=== PATIENT | female | born 1985 | race Caucasian/White ===

== ENCOUNTER 2018-05-05 00:15 | Emergency (ER) | payer OTHER ==
[2018-05-05 00:23] VITALS: BP 129/79
--- NOTE | 2018-05-05 01:22 | ED Physician Documentation ---
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 she is UTD on tetanus immunization. patient is right hand dominant Review of Systems Skin: reports: Laceration (s) Neurologic: denies: Focal weakness, Numbness PD PAST MEDICAL HISTORY - Past Medical History Past Medical History: Yes Other Past Medical History: heart murmur since - Past Surgical History Past Surgical History: No - Present Medications Home Medications: Ambulatory Orders Medication Instructions Recorded Confirmed Bcp 05/05/18 - Allergies Allergies/Adverse Reactions: Allergies Allergy/AdvReac Type Severity Reaction Status Date / Time No Known Drug Allergies Allergy Verified 05/05/18 00:22 - Social History Does the pt smoke?: No Smoking Status: Never smoker Does the pt drink ETOH?: Yes Does the pt have substance abuse?: No - Immunizations Immunizations are current?: Yes PD ED PE NORMAL - Vitals Vital signs reviewed: Yes - General General: Alert and oriented X 3, No acute distress, Well developed/nourished PD ED PE EXPANDED - Extremities MYRIAM UE/Hands Visual: 1 - laceration (avulsion of fingertip and distal nail with bleeding that stops with direct pressure. no exposed bone, no bony tenderness. ROM intact in the digit (flexion and extension)) Results - Vitals Vitals: Vital Signs - 24 hr 05/05/18 00:21 Temperature 36.6 C Heart Rate 69 Respiratory 18 Rate Blood Pressure 129/79 O2 Saturation 100 Oxygen O2 Source Room air PD MEDICAL DECISION MAKING - ED course Complexity details: considered differential, d/w patient Departure - Departure Disposition: 01 Home, Self Care Clinical Impression: Injury of tip of finger Qualifiers: Encounter type: initial encounter Laterality: right Qualified Code(s): S69.91XA - Unspecified injury of right wrist, hand and finger(s), initial encounter Condition: Good Instructions: ED Laceration Amputation Finger Tip Open Tx Follow-Up: Sage Wray MD [Primary Care Provider] - Discharge Date/Time: 05/05/18 01:50
== END 2018-05-05 01:50 | disposition home or self-care (01) ==
LOC: ED 00:15
DX: S61.312A Laceration without foreign body of right middle finger with damage to nail, initial encounter (principal); W27.4XXA Contact with kitchen utensil, initial encounter; Y93.89 Activity, other specified; Y92.009 Unspecified place in unspecified non-institutional (private) residence as the place of occurrence of the external cause
CPT/HCPCS: 99282; 99283

== ENCOUNTER 2019-01-08 13:21 | Emergency (ER) | payer OTHER ==
[2019-01-08] MEDS ORDERED: KETOROLAC 30 MG/ML VIAL IVP STA (13:57)
[2019-01-08] MEDS ORDERED: SODIUM CHLORIDE 0.9% 1,000 ML IV ONE (13:57)
--- NOTE | 2019-01-08 14:01 | ED Physician Documentation ---
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 She has saturated 3 pads this morning. She has acute right lower pain. She has had similar symptoms previously with ovarian cyst and she has been placed onto low-dose control and her symptoms have been controlled for about 4 years. Review of Systems Constitutional: denies: Fever Eyes: denies: Decreased vision Ears: denies: Ear pain Nose: denies: Congestion Throat: denies: Sore throat Cardiac: denies: Chest pain / pressure, Palpitations Respiratory: denies: Dyspnea, Cough GI: reports: Abdominal Pain. denies: Nausea, Vomiting, Constipation, Diarrhea : reports: Vaginal bleeding, Other (pelvic cramping). denies: Dysuria, Frequency, Discharge Skin: denies: Rash Musculoskeletal: denies: Neck pain, Back pain, Extremity pain PD PAST MEDICAL HISTORY - Past Surgical History Past Surgical History: No - Present Medications Home Medications: Ambulatory Orders Medication Instructions Recorded Confirmed Bcp 05/05/18 Hydrocodone/Acetaminophen 1 - 2 each PO Q6H PRN #14 tablet 01/08/19 [Hydrocodon-Acetaminophen 5-325] Multivitamin [Multivitamins] 01/08/19 - Allergies Allergies/Adverse Reactions: Allergies Allergy/AdvReac Type Severity Reaction Status Date / Time No Known Drug Allergies Allergy Verified 01/08/19 13:26 - Social History Does the pt smoke?: No Smoking Status: Never smoker Does the pt drink ETOH?: Yes Does the pt have substance abuse?: No - Immunizations Immunizations are current?: Yes PD ED PE NORMAL - Vitals Vital signs reviewed: Yes (normal ) - General General: Alert and oriented X 3, Well developed/nourished, Other (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 ) - HEENT HEENT: Atraumatic, PERRL, EOMI - Neck Neck: Supple, no meningeal sign, No bony TTP - Cardiac Cardiac: RRR, No murmur - Respiratory Respiratory: No respiratory distress, Clear bilaterally - Abdomen Abdomen: Normal bowel sounds, Soft, Non distended, No organomegaly, Other (suprapubic tenderness just to the right of midline. ) - Back Back: No CVA TTP, No spinal TTP - Derm Derm: Normal color, Warm and dry, No rash - Extremities Extremities: No edema - Neuro Neuro: Alert and oriented X 3, core maker 2-12 intact, No motor deficit, No sensory deficit, Normal speech Eye Opening: Spontaneous Motor: Obeys Commands Verbal: Oriented GCS Score: 15 - Psych Psych: Normal mood Results - Vitals Vitals: Vital Signs - 24 hr 01/08/19 01/08/19 01/08/19 13:25 14:02 15:38 Temperature 36.7 C Heart Rate 70 79 65 Respiratory 18 15 18 Rate Blood Pressure 128/80 147/83 H 111/78 O2 Saturation 100 97 100 Oxygen O2 Source Room air - Labs Labs: Laboratory Tests 01/08/19 01/08/19 01/08/19 14:11 14:11 15:30 WBC 7.1 RBC 4.72 Hgb 14.0 Hct 40.7 MCV 86.2 MCH 29.7 MCHC 34.4 RDW 11.9 L Plt Count 281 MPV 9.0 Neut # (Auto) 4.9 Lymph # (Auto) 1.5 [place] # (Auto) 0.5 Eos # (Auto) 0.1 Baso # (Auto) 0.1 Absolute Nucleated RBC 0.00 Nucleated RBC % 0.0 Sodium 139 Potassium 3.9 Chloride 104 Carbon Dioxide 24 Anion Gap 11.0 BUN 13 Creatinine 0.7 Estimated GFR (MDRD) 96 Glucose 117 H Calcium 9.0 Total Bilirubin 0.7 AST 19 ALT 26 Alkaline Phosphatase 56 Total Protein 7.7 Albumin 4.1 Globulin 3.6 Albumin/Globulin Ratio 1.1 Lipase 57 H Urine Color YELLOW Urine Clarity CLEAR Urine pH 6.5 Ur Specific [place] 1.020 Urine Protein NEGATIVE Urine Glucose (UA) NEGATIVE Urine Ketones NEGATIVE Urine Occult Blood MODERATE H Urine Nitrite NEGATIVE Urine Bilirubin NEGATIVE Urine Urobilinogen 0.2 (NORMAL) Ur Leukocyte Esterase NEGATIVE Urine RBC 6-10 H Urine WBC 0-3 Ur Squamous Epith Cells FEW Squamous Urine Bacteria None Seen Ur Microscopic Review INDICATED Urine Culture Comments NOT INDICATED Urine HCG, Qual NEGATIVE - Rads (name of study) pelvic ultrasound Radiology: Prelim report reviewed (Impression: 1. A simple right ovarian cyst measuring 3.4 x 1.6 x 2.3 cm. 2 A juxta- endometrial fibroid seen in the left anterior uterus measuring 0.8 x 1 x 1 cm, submucosal location is not excluded. A larger intramural fibroid measuring 1.6 x 1.3 x 1.9 cm.), EMP read indepedently, See rad report PD MEDICAL DECISION MAKING - ED course Complexity details: reviewed results, re-evaluated patient, considered differential, d/w patient, d/w family ED course: 33-year-old female with a prior history of ovarian cyst has been on low-dose control for 4 years and has had control of her symptoms. Over the past 2 months she has had increased symptoms of cramping with menstruation and increased bleeding. Today she has marked increase in her bleeding and severe pain ultrasound was undertaken to rule out torsion. There is no evidence of torsion and the patient has excellent pain relief with the use of Toradol. She is much more comfortable. Ultrasound shows uterine fibroids and right ovarian cyst. Simple. Departure - Departure Disposition: 01 Home, Self Care Clinical Impression: Fibroids Cyst of ovary Qualifiers: Laterality: right Qualified Code(s): N83.201 - Unspecified ovarian cyst, right side Condition: Stable Instructions: ED Fibroids, ED Cyst Ovarian Follow-Up: Sage Wray MD [Primary Care Provider] - Prescriptions: Hydrocodone/Acetaminophen [Hydrocodon-Acetaminophen 5-325] 1 - 2 each PO Q6H PRN #14 tablet PRN Reason: pain Comments: A follow up with [facility] ARCHIT[facility] is recommended.
[2019-01-08 14:21] LABS: BASOPHILS # (AUTO) 0.1 10^3/uL (0.0-0.1); BASOPHILS % (AUTO) 0.7 %; EOSINOPHILS # (AUTO) 0.1 10^3/uL (0.0-0.7); LYMPHOCYTES # (AUTO) 1.5 10^3/uL (1.5-3.5); MEAN CORPUSCULAR HEMOGLOBIN 29.7 pg (27.0-31.0); MEAN CORPUSCULAR HGB CONC 34.4 g/dL (32.0-36.0); MEAN CORPUSCULAR VOLUME 86.2 fL (81.0-99.0); MONOCYTES # (AUTO) 0.5 10^3/uL (0.0-1.0); NEUTROPHILS # (AUTO) 4.9 10^3/uL (1.5-6.6); PLT - PLATELET COUNT 281 10^3/uL (130-450); RED BLOOD COUNT 4.72 10^6/uL (4.20-5.40); RED CELL DISTRIBUTION WIDTH 11.9 % (12.0-15.0); WHITE BLOOD COUNT 7.1 x10^3/uL (4.8-10.8)
[2019-01-08 14:34] LABS: ALBUMIN 4.1 g/dL (3.2-5.5); ALBUMIN/GLOBULIN RATIO 1.1 (1.0-2.2); BILIRUBIN,TOTAL 0.7 mg/dL (0.2-1.0); CREATININE 0.7 mg/dL (0.4-1.0); TOTAL PROTEIN 7.7 g/dL (6.7-8.2)
[2019-01-08 15:38] LABS: BILIRUBIN,URINE NEGATIVE (NEGATIVE); GLUCOSE, URINE (UA) NEGATIVE (NEGATIVE); KETONES,URINE (UA) NEGATIVE (NEGATIVE); LEUKOCYTE ESTERASE, URINE NEGATIVE (NEGATIVE); NITRITE,URINE NEGATIVE (NEGATIVE); OCCULT BLOOD,URINE MODERATE (NEGATIVE); PH,URINE 6.5 PH (5.0-7.5); PROTEIN,URINE NEGATIVE (NEGATIVE); UROBILINOGEN,URINE 0.2 (NORMAL) E.U./dL (NORMAL)
[2019-01-08 15:39] VITALS: BP 111/78
[2019-01-08 15:42] LABS: CLARITY,URINE CLEAR (CLEAR); HCG UR QUAL NEGATIVE
--- NOTE | 2019-01-08 15:43 | Ultrasound Report ---
Reason: severe RLQ pain excessive vaginal bleeding. Procedure Date: 01/08/2019 Accession Number: [id number] / [id number] Procedure: US - Pelvic w/Transvag+Doppler Ltd CPT Code: FULL RESULT: EXAM: PELVIC ULTRASOUND WITH DOPPLERS CLINICAL HISTORY: Severe RLQ pain excessive vaginal bleeding. COMPARISON: None. TECHNIQUE: Realtime transabdominal imaging performed to identify the uterus and adnexa and as an overview of other pelvic structures, followed by transvaginal imaging for better assessment of the endometrium and adnexa, with static image documentation. Color flow imaging and Doppler spectral analysis was performed to evaluate blood flow to the ovaries given pelvic pain and clinical concern for ovarian torsion. FINDINGS: Uterus: 9.2 x 4.2 x 5.6 cm, volume 113.1 cc. Anteverted position. Normal overall size and echotexture. Masses: A juxta -endometrial fibroid seen in the left anterior aspect of the uterus measuring 0.8 x 1 x 1 cm, submucosal location is not excluded. There is a larger intramural fibroid measuring 1.6 x 1.3 x 1.9 cm. Endometrium: 2.1 mm. Normal. Cervix: Nabothian cysts noted. Right Ovary: 4.4 x 2.2 x 2.9 cm, volume 14.7 cc. Normal echotexture. There is a simple right ovarian cyst measuring 3.4 x 1.6 x 2.3 cm. Left Ovary: 3 x 1.4 x 2.3 cm, volume 5.2 cc. Normal echotexture. Adnexa are unremarkable. Free Fluid: None. Other: None. IMPRESSION: 1. A simple right ovarian cyst measuring 3.4 x 1.6 x 2.3 cm. 2. A juxta -endometrial fibroid seen in the left anterior uterus measuring 0.8 x 1 x 1 cm, submucosal location is not excluded. A Larger intramural fibroid measuring 1.6 x 1.3 x 1.9 cm. RADIA
[2019-01-08 15:51] LABS: BACTERIA,URINE None Seen /HPF (None Seen); SQUAMOUS EPITHELIAL CELL,UR FEW Squamous (<= Few)
== END 2019-01-08 16:13 | disposition home or self-care (01) ==
LOC: ED 13:21
DX: D25.1 Intramural leiomyoma of uterus (principal); N83.291 Other ovarian cyst, right side; N92.0 Excessive and frequent menstruation with regular cycle
CPT/HCPCS: 36415; 76830; 76856; 80053; 81001; 81003; 81025; 83690; 85025; 87086; 93976; 96361; 96374; 99284

== ENCOUNTER 2020-12-20 10:27 | Emergency (ER) | payer OTHER ==
[2020-12-20] MEDS ORDERED: HYDROcod/ACETAM 5/325 MG TABLET PO STA (10:43)
[2020-12-20] MEDS ORDERED: LIDOCAINE PATCH 5% TOP STA (10:43)
[2020-12-20] MEDS ORDERED: CYCLOBENZAPRINE 10 MG TABLET PO STA (10:43)
[2020-12-20] MEDS ORDERED: ONDANSETRON ODT 4 MG TABLET TL STA (10:43)
[2020-12-20] MEDS ORDERED: KETOROLAC 15 MG/ML VIAL IM STA (10:43)
--- NOTE | 2020-12-20 10:45 | ED Physician Documentation ---
PD HPI BACK PAIN - Stated complaint Stated Complaint: BACK PX - Chief complaint Chief Complaint: Back Pain - History obtained from History obtained from: Patient - Additional information Additional information: While on a rowing machine last night she developed severe left-sided upper back pain it hurts to take a deep breath, but not short of breath per se. The pain does not radiate. It is worse if she twists or bends as well. No history of back problems. She tried ibuprofen without relief. She has had a sensitivity to narcotics in the past but does okay if combined with nausea medicine. No possibility of . 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 - Past Surgical History Past Surgical History: No - Present Medications Home Medications: Ambulatory Orders Medication Instructions Recorded Confirmed Bcp 05/05/18 Hydrocodone/Acetaminophen 1 - 2 each PO Q6H PRN #14 tablet 01/08/19 [Hydrocodon-Acetaminophen 5-325] Multivitamin [Multivitamins] 01/08/19 Cyclobenzaprine [Flexeril] 10 mg PO TID PRN #20 tablet 12/20/20 HYDROcod/ACETAM 5/325 [[place] 5/325] 1 - 2 tab PO Q6H PRN #15 tablet 12/20/20 Lidocaine Patch 5% [Lidoderm Patch] 1 patch TOP DAILY PRN #10 patch 12/20/20 Ondansetron Odt [Zofran] 4 mg TL Q6H PRN #10 tablet 12/20/20 - Allergies Allergies/Adverse Reactions: Allergies Allergy/AdvReac Type Severity Reaction Status Date / Time oxycodone AdvReac Emesis Verified 12/20/20 10:34 - Social History Does the pt smoke?: No Smoking Status: Never smoker Does the pt drink ETOH?: Yes Does the pt have substance abuse?: No - Immunizations Immunizations are current?: Yes PD ED PE NORMAL - Vitals Vital signs reviewed: Yes - General General: Alert and oriented X 3, Other (Comfortable at rest but resistant to move and winces with motion.) - Neck Neck: Supple, no meningeal sign, No bony TTP - Cardiac Cardiac: RRR, No murmur - Respiratory Respiratory: No respiratory distress, Clear bilaterally - Abdomen Abdomen: Non tender - Back Back: No spinal TTP, Other (Tender to low parathoracic musculature on the left) - Extremities Extremities: Other (The patient has equal and normal Achilles and patellar reflexes bilaterally. Normal sensation in all areas of the legs. Patient denies saddle anesthesia. Normal strength in flexion-extension at the ankles, knees, and flexion of the hips.) - Neuro Neuro: Alert and oriented X 3, Normal speech Results - Vitals Vitals: Vital Signs - 24 hr 12/20/20 10:33 Temperature 36.6 C Heart Rate 70 Respiratory 20 Rate Blood Pressure 105/65 O2 Saturation 100 Oxygen O2 Source Room air PD MEDICAL DECISION MAKING - ED course ED course: This patient has seemingly uncomplicated musculoskeletal back pain. The patient has no "red flags." Specifically denies IV drug use, fevers, incontinence, saddle anesthesia. Spinal epidural abscess was considered, given that the patient has no fever, is not diabetic, has no spinal tenderness, does not use IV drugs, and has no bilateral neurologic symptoms, the diagnosis of spinal epidural abscess is considered exceedingly unlikely. Departure - Departure Disposition: Home, Self Care Clinical Impression: Back spasm Condition: Good Record reviewed to determine appropriate education?: Yes Instructions: ED Spasm Back No Trauma Prescriptions: Cyclobenzaprine [Flexeril] 10 mg PO TID PRN #20 tablet PRN Reason: Spasms Lidocaine Patch 5% [Lidoderm Patch] 1 patch TOP DAILY PRN #10 patch PRN Reason: pain HYDROcod/ACETAM 5/325 [[place] 5/325] 1 - 2 tab PO Q6H PRN #15 tablet PRN Reason: Pain Ondansetron Odt [Zofran] 4 mg TL Q6H PRN #10 tablet PRN Reason: Nausea / Vomiting Comments: Call your doctor to arrange a follow-up appointment, make the next available appointment. In the interim, return anytime if worse or if new symptoms develop. I am prescribing a short course of narcotic pain medication for you. These are potentially dangerous and addictive medications that should be used carefully. These medications may constipate you. Take an [id number] stool softener (docusate) twice daily with plenty of water while taking these medications. If you go 24 hours without a bowel movement, take [id number] miralax, per package instructions. Do not drink or drive while taking these medications. If you received narcotic or sedating medications while in the emergency department, do not drive for 24 hours. Store this medication in a safe, secure place and out of reach of children. It is a violation of federal law to give or sell this medication to another person or to use in a manner other than prescribed. The ED will not refill narcotic prescriptions, including prescriptions lost or stolen. To dispose of unwanted medications: 1. [facility] [address] in [place] has a medication drop box. They accept prescription medications (in pill form) Thursday through Thursday 9:00 a.m. to 5:00 p.m. 2. The [facility] [employer] accepts prescription medications (in pill form only) for disposal year round. Call for more information. 3. Contact the [facility] for the next [facility] sponsored prescription drug collection event. , [phone], or [phone]; Note that many narcotic pain relievers also contain Tylenol/acetaminophen. Please ensure that your total dose of acetaminophen from all sources does not exceed 3 g (3000 mg) per day. Forms: Activity restrictions
[2020-12-20 11:20] VITALS: BP 104/66
== END 2020-12-20 11:20 | disposition home or self-care (01) ==
LOC: ED 10:27
DX: M62.830 Muscle spasm of back (principal); M54.6 Pain in thoracic spine; X50.9XXA Other and unspecified overexertion or strenuous movements or postures, initial encounter; Y93.A1 Activity, exercise machines primarily for cardiorespiratory conditioning
CPT/HCPCS: 96372; 99284; A9270; Q0162